=== PATIENT | female | born 1970 | race African-American/Black ===

== ENCOUNTER 2022-04-14 08:38 | Emergency (ER) | payer MEDICARE, MEDICAID ==
[~2022-04-14] VITALS: Ht 160 cm; Wt 50.0 kg
[2022-04-14 10:23] VITALS: BP 132/62
== END 2022-04-14 11:13 | disposition left against medical advice (07) ==
LOC: EMS 08:41
DX: M25.511 Pain in right shoulder (principal); M54.2 Cervicalgia; R51.9 Headache, unspecified; E11.9 Type 2 diabetes mellitus without complications; F17.210 Nicotine dependence, cigarettes, uncomplicated; Z88.6 Allergy status to analgesic agent; V89.2XXA Person injured in unspecified motor-vehicle accident, traffic, initial encounter; Y93.89 Activity, other specified; Y92.89 Other specified places as the place of occurrence of the external cause; Y99.8 Other external cause status
CPT/HCPCS: 99281; Z7502